=== PATIENT | male | born 1955 | race African-American/Black ===

== ENCOUNTER 2024-07-12 04:52 | Day surgery (SDC) | payer OTHER ==
[2024-07-08 11:25] VITALS: BMI 25.7
[2024-07-12] MEDS ORDERED: ELECTROLYTE-148 SOLN 1,000 ML IV SCH (12:00)
[2024-07-12] MEDS ORDERED: MIDAZOLAM HCL 2 MG/2 ML SINGLE DOSE VIAL ONE (13:27)
[2024-07-12] MEDS ORDERED: PROPOFOL 20 ML ONE (13:28)
[2024-07-12] MEDS: ceFAZolin SODIUM 1 GM VIAL IVPB ONE (13:47)
[2024-07-12] MEDS ORDERED: FUROSEMIDE 40 MG/4 ML INJECTABLE VIAL ONE ×2 (14:06→14:35)
[2024-07-12] MEDS ORDERED: ONDANSETRON 4 MG/2 ML VIAL ONE (14:35)
[2024-07-12] MEDS ORDERED: DEXAMETHASONE SOD PHOSPHATE 4 MG/1 ML VIAL ONE (14:35)
[2024-07-12] MEDS ORDERED: KETOROLAC TROMETHAMINE 30 MG/1 ML VIAL ONE (14:35)
[2024-07-12] MEDS ORDERED: ceFAZolin SODIUM 1 GM VIAL ONE (14:36)
[2024-07-12] MEDS ORDERED: ONDANSETRON 4 MG/2 ML VIAL IVPUSH PRN (15:03)
[2024-07-12] MEDS ORDERED: oxyCODONE HCL 5 MG TABLET PO PRN (15:03)
[2024-07-12] MEDS ORDERED: LACTATED RINGERS SOLUTION 1,000 ML IV SCH (15:15)
[2024-07-12 17:13] VITALS: RESP 18; TEMP 97.1
[2024-07-12 18:07] VITALS: BP 126/72; PULSE 54
== END 2024-07-12 18:15 | disposition home or self-care (01) ==
LOC: JASU-SURG 04:52
PROVIDERS: ATTEND Urology
PROC: 0VT08ZZ Resection of Prostate, Via Natural or Artificial Opening Endoscopic (ICD-10-PCS; principal; 2024-07-12 12:45)
DX: N40.1 Benign prostatic hyperplasia with lower urinary tract symptoms (principal); R33.8 Other retention of urine
CPT/HCPCS: 88305-TC; 94760; C1769

== ENCOUNTER 2024-07-29 14:09 | Emergency (ER) | payer OTHER ==
[2024-07-29 14:22] VITALS: TEMP 98.7; BMI 26.7
[2024-07-29] MEDS ORDERED: HYDROmorphone HCL CARPU-JECT 2 MG/1 ML DISP.SYRIN ONE (15:31)
[2024-07-29] MEDS: HYDROmorphone HCl 2 MG/ML VIAL IVPUSH ONE ×2 (15:47→15:52)
[2024-07-29] MEDS: morphine CARPU-JECT 4 MG/1 ML DISP.SYRIN IVPUSH ONE (15:52)
[2024-07-29 15:53] LABS: BASO % 1.1 % (0-2.0); EOS % 11.6 % (0-4.5); HEMATOCRIT 41.5 % (35.4-49); HEMOGLOBIN 13.8 GM/dL (11.7-16.9); LYMPH % 29.4 % (8-40); MCH 28.7 pg (25.7-33.7); MCHC 33.3 g/dl (32.0-35.9); MONO % 8.4 % (3.8-10.2); NEUT % 49.5 % (42.8-82.8); PLATELET COUNT 202 10^3/uL (134-434); RBC 4.83 M/mm3 (4.00-5.60); RDW 14.1 % (11.9-15.9); WHITE BLOOD COUNT 6.1 K/mm3 (4.0-10.0)
[2024-07-29 16:03] LABS: INR 0.98 (0.83-1.09); PROTHROMBIN TIME (PATIENT) 11.3 SEC (9.7-13.0)
[2024-07-29 16:06] LABS: ACTIVATED PTT 34.2 SECONDS (25.2-36.5)
[2024-07-29 16:41] LABS: ALBUMIN 3.5 g/dl (3.4-5.0); CALCIUM 9.6 mg/dL (8.5-10.1)
[2024-07-29 16:42] LABS: BLOOD UREA NITROGEN 20.6 mg/dL (7-18)
[2024-07-29 16:46] LABS: BILIRUBIN,TOTAL 0.2 mg/dL (0.2-1); TOT PROT 7.4 g/dl (6.4-8.2)
[2024-07-29 17:33] VITALS: BP 106/62; PULSE 62; RESP 16
== END 2024-07-29 19:10 | disposition home or self-care (01) ==
LOC: JER 14:09
PROC: 3E033NZ Introduction of Analgesics, Hypnotics, Sedatives into Peripheral Vein, Percutaneous Approach (ICD-10-PCS; principal; 2024-07-29)
PROC: 0T2BX0Z Change Drainage Device in Bladder, External Approach (ICD-10-PCS; 2024-07-29)
DX: R31.0 Gross hematuria (principal); R33.8 Other retention of urine
CPT/HCPCS: 36415; 80053; 85025; 85610; 85730; 86850; 86900; 86901; 99284-25

== ENCOUNTER 2024-07-30 06:32 | Emergency (ER) | payer OTHER ==
[2024-07-30 06:43] VITALS: BP 113/65; PULSE 74; RESP 18; TEMP 98.6; BMI 26.7
== END 2024-07-30 08:46 | disposition home or self-care (01) ==
LOC: JER 06:32
DX: T83.031A Leakage of indwelling urethral catheter, initial encounter (principal); R31.0 Gross hematuria; R33.9 Retention of urine, unspecified
CPT/HCPCS: 99283-25